=== PATIENT | male | born 1945 | race Caucasian/White ===

== ENCOUNTER → 2019-05-24 | Outpatient (CLI) | payer MEDICARE, OTHER | LOC: CARD 09:33 | PROVIDERS: ATTEND Internal Medicine Cardiovascular Disease | DX: I51.7 Cardiomegaly (principal); I25.10 Atherosclerotic heart disease of native coronary artery without angina pectoris; I11.0 Hypertensive heart disease with heart failure; I50.9 Heart failure, unspecified; E11.9 Type 2 diabetes mellitus without complications | CPT/HCPCS: 93306 ==

== ENCOUNTER → 2020-08-21 | Outpatient (CLI) | payer MEDICARE, OTHER ==
[~2020-08-21] VITALS: Ht 185 cm; Wt 122.0 kg
[~2020-08-21] MED LIST: CATHETER FLUSH 10 ML SYR IV PRN; REGADENOSON 0.4 MG/5 ML SYR (LEXISCAN) IV ONE
[2020-08-21 09:42] VITALS: BP 151/90
--- NOTE | 2020-08-21 11:22 | Cardiology Stress Test Report ---
Stress Test Report Date of Procedure/Referring: Date of Procedure: Aug 21, 2020 PCP Pipe Galindo MD Admitting Physician No,Local Physician Indications: CP Baseline Heart Rate: 89 Baseline Blood Pressure: Blood Pressure Systolic: 151 Blood Pressure Diastolic: 90 Baseline Vitals Vital Signs Date Time Temp Pulse Resp B/P (MAP) Pulse Ox O2 Delivery O2 Flow Rate FiO2 08/21/20 09:42 89 151/90 (110) 99 Baseline EKG: Baseline EKG: Normal sinus rhythm Summary After explaining the procedure to the patient, he signed a consent and then brought to the stress nuclear laboratory. Patient received 0.4 mg Lexiscan for stress test, ECG, heart rate and blood pressure were monitored continuously. Resting and stress dose of radio tracer were injected, imaging was acquired and reviewed in short axis, horizontal long axis and vertical long axis views. TID: 1.12 SSS: 6 SDS: 3 EF: 51 1. Patient tolerated Lexiscan well 2. Diaphragmatic attenuation with mild decreased uptake at the mid to apical inferolateral and anterolateral wall with mild reversibility, could be secondary to diaphragmatic attenuation 3. Normal left ventricular size, EF 51% PIPE GALINDO MD Aug 21, 2020 11:22
== END ==
LOC: CARD 07:58
PROVIDERS: ATTEND Internal Medicine Cardiovascular Disease
DX: R07.9 Chest pain, unspecified (principal)
CPT/HCPCS: 78452; 93017; A9502

== ENCOUNTER 2021-01-24 10:00 | Day surgery (SDC) | payer MEDICARE, OTHER ==
[~2021-01-24] VITALS: Ht 185 cm; Wt 126.0 kg
--- OUTSIDE RECORDS SUMMARY | 2021-01-24 07:48 | XMS REPORT | Continuity of Care Document ---
Author Author [facility] Organization [facility] Address [address] [place] [address] Phone Support Name Relationship Address Phone Mirza Mixon [employer] [address] [place] [address] Levy Rojas [employer]S [address] [place] [address] Allergies, Adverse Reactions, Alerts Allergen Type Severity Reaction Last Updated Verified Status NO KNOWN ALLERGIES Allergy Unknown na October 10, 2020 9:35am No Active Medications Medication Status Dose Units Route Directions Qty Days Start Date End Date Instructions Metformin Discontinued 1 000 MG PO TWICE A DAY 60 June 14, 2020 10:26am August 28, 2020 2:05pm Simvastatin Discontinued 40 MG PO EVERY EVENING June 14, 2020 11:01am October 25, 2020 1:05pm Lisinopril Active 20 MG PO DAILY August 28, 2020 8:58am Metformin Discontinued 1 000 MG PO TWICE A DAY 60 August 28, 2020 2:05pm January 09, 2021 10:12am Simvastatin Active 40 MG PO EVERY EVENING October 25, 2020 1:05pm Metformin Active 1000 MG PO TWICE A DAY 180 January 09, 2021 10:11am flu vacc [id number] [id number])-PF 240 mcg/0 .7 mL intramuscular syringe Discontinued 0.7 ML IM ONCE 0.7 February 04, 2020 9:05am Septembe r 2019 9:37am Metoprolol Succinate (Toprol Xl) 25 mg t ablet extended release 24 hr Active 25 MG PO DAILY May 15, 2020 10:25am Amlodipine Active 10 MG PO DAILY July 03, 2020 10:45am Glipizide Active 5 MG PO .am October 10, 2020 10:09am take 1 tablet in the morning Lisinopril Discontinued 20 MG PO DAILY July 26, 2018 3:58pm August 28, 2020 8:59am Amlodipine Discontinued 5 MG PO DAILY July 26, 2018 3:58pm May 15, 2020 10:26am Aspirin (Adult Low Dose Aspirin) 81 mg T ablet,Delayed Release (Dr/Ec) Active 81 MG PO DAILY July 26, 2018 3:58pm Simvastatin Discontinued 40 MG PO EVERY EVENING July 26, 2018 3:58pm June 14, 2020 11:02am Metformin Discontinued 1 000 MG PO TWICE A DAY July 26, 2018 3:58pm June 14, 2020 10:27am Ibuprofen Discontinued 8 00 MG PO Q8H July 26, 2018 4:40pm October 06, 2018 12:03pm Hydrocodone-Acetaminophen ([place]) 7.5-325 mg tablet Discontinued 1 TAB PO EVERY 4-6 HOURS July 26, 2018 4:40pm October 06 12:03pm Problems Active Problems Medical Problem Onset Date Status Diabetes Active Coronary artery disease Active Hyperlipidemia Active Left knee pain Active Localized cancer of nasal cavity Active Hypertension Active Inactive/Resolved Problems Medical Problem Onset Date Status Closed rib fracture Re solved Epistaxis Resolved Procedures No procedure information available. Relevant Diagnostic Tests and/or Laboratory Data Laboratory Results Test Date/Time Result Interpretation Reference Range Result Comment Performing Site White Blood Count January 12 9:01am 10.2 K/uL 4.8-10.8 [facility], [address] [facility] [address] Red Blood Count January 12, 2021 9:01am 5.46 M/uL 4.70-6.10 [facility], [address] [facility] [address] Hemoglobin January 12, 2021 9:01am 16.2 gm/dL 14.0-18.0 [facility], [address] [facility] [address] Hematocrit January 12, 2021 9:01am 47.9 % 42.0-52.0 [facility], [address] [facility] [address] Mean Corpuscular Volume January 9:01am 87.7 fL 80.0-96.1 [facility], [address] [facility] [address] Mean Corpuscular Hemoglobin Septembe r 3rd, 2021 9:01am 29.7 pg 27.0-31.0 [facility], [address] [place] [address] Mean Corpuscular Hemoglobin Concent January 12, 2021 9:01am 33.8 g/dL 30.0-37.0 [facility], [address] [place] [address] Red Cell [facility] 9:01am 14.9 % 11.5-14.5 [facility], [address] [place] [address] Platelet Count January 12, 2021 9:01am 383 K/uL 130-400 [facility], [address] [facility] [address] Neutrophils (%) (Auto) January 9:01am 66.7 % 42.2-75.2 [facility], [address] [facility] [address] Lymphocytes (%) (Auto) January 9:01am 19.9 % 20.5-51.1 [facility], [address] [facility] [address] Monocytes (%) (Auto) January 12, 2021 9:01am 8.4 % 0.0-10.0 [facility], [address] [facility] [address] Eosinophils (%) (Auto) January 9:01am 3.6 % 0.0-3.0 [facility], [address] [facility] [address] Basophils (%) (Auto) January 12, 2021 9:01am 1.1 % 0.0-1.0 [facility], [address] [facility] [address] Neutrophils # (Auto) January 12, 2021 9:01am 6.83 K/uL 2.0-6.9 [facility], [address] [facility] [address] Lymphocytes # (Auto) January 12, 2021 9:01am 2.04 K/uL 1.2-3.4 [facility], [address] [facility] [address] Monocytes # (Auto) January 12 9:01am 0.86 K/uL 0.1-0.6 [facility], [address] [facility] [address] Eosinophils # (Auto) January 12, 2021 9:01am 0.37 K/uL 0.0-0.7 [facility], [address] [facility] [address] Basophils # (Auto) January 12 9:01am 0.11 K/uL 0.0-0.20 [facility], [address] [facility] [address] Immature Granulocyte % (Auto) Janem caden 2020 9:01am 0.3 % [facility], [address] [facility] [address] Immature Granulocyte # (Auto) Janem caden 2020 9:01am 0.03 K/uL [facility], [address] [facility] [address] Sodium Level January 12, 2021 9:01am 142 mEq/L 136-145 [facility], [address] [facility] [address] Potassium Level January 12, 2021 9:01am 3.7 mEq/L 3.5-5.0 [facility], [address] [facility] [address] Chloride Level January 12, 2021 9:01am 105 mEq/L 98-107 [facility], [address] [facility] [address] Carbon Dioxide Level January 12, 2021 9:01am 24.8 mEq/L 21-32 [facility], [address] [facility] [address] Random Glucose January 12, 2021 9:01am 99 mg/dL 70-110 [facility], [address] [facility] [address] Blood Urea Nitrogen January 12 9:01am 10 mg/dL 7-18 [facility], [address] [facility] [address] Creatinine January 12, 2021 9:01am 0.9 mg/dL 0.7-1.3 [facility], [address] [facility] [address] Glomerular Filtration Rate Calc Sept ember 2020 9:01am 82.3 mL/min [facility], [address] [place] [address] Calcium Level January 12, 2021 9:01am 9.2 mg/dL 8.8-10.5 [facility], [address] [facility] [address] Total Bilirubin January 12, 2021 9:01am 0.41 mg/dL 0.00-1.00 [facility], [address] [facility] [address] Direct Bilirubin January 12, 2021 9:01a m 0.07 mg/dL 0.00-0.30 [facility], [address] [facility] [address] Indirect Bilirubin January 12 9:01am 0.34 mg/dL 0-0.70 [facility], [address] [facility] [address] Aspartate Amino Transf (AST/SGOT) Se pt2020 9:01am 17 U/L 15-37 [facility], [address] [place] [address] Alanine Aminotransferase (ALT/SGPT) January 12, 2021 9:01am 22 U/L 12-78 [facility], [address] [place] [address] Total Protein January 12, 2021 9:01am 7.4 gm/dL 6.4-8.2 [facility], [address] [facility] [address] Albumin January 12, 2021 9:01am 3.1 gm/dL 3.4-5.0 [facility], [address] [facility] [address] Triglycerides Level January 12 021 9:01am 99 mg/dL 30-200 [facility], [address] [facility] [address] Cholesterol Level January 12 9:01am 238 mg/dL 120-200 [facility], [address] [facility] [address] HDL Cholesterol January 12, 2021 9:01am 49 mg/dL 35-60 [facility], [address] [facility] [address] LDL Cholesterol, Calculated 2020 9:01am 169 mg/dL 0-130 [facility], [address] [place] [address] Alkaline Phosphatase January 12, 2021 9:01am 59 U/L 50-136 [facility], [address] [facility] [address] Thyroid Stimulating Hormone (Reflex January 12, 2021 9:01am 1.74 uIU/ml 0.36-3.74 TSH is within normal limits - Free T4 re flex testing will not be performed. [facility], [address] [facility] [address] Hemoglobin A1c January 12, 2021 9:01am 5.7 % 4.8-6.0 [facility], [address] [place] [address] Health Concerns Health Concerns may be documented in an alternate section. Advance Directives Advance Directive Response Recorded Date/Time Does the patient have an Advance Directive on File? No January 03, 2020 3:10pm Do you have a Medical Power of Cycling Instructor? N o January 03, 2020 3:10pm Do you have a Health Care Proxy? No January 03, 2020 3:10pm Do you have a Living Will? No January 03, 2020 3:10pm Chief Complaint and Reason for Visit Chief Complaint LABS MISC Encounters Encounter Location(s) Ar rival/Admit Date Discharge/Depart Date Provider(s) Departed Physician/Provider Office Visit [facility] January 12, 2021 8:48am January 12, 2021 9:11am Levy Rojas MD Departed Referred [facility] January 12, 2021 8:59am January 12, 2021 9:00am Levy Rojas MD Assessments No Assessments Information Available Functional Status No Functional Status information available Goals Goals may be documented in an alternate section. Immunizations No Immunization Information Available Mental Status No Mental Status Information Available Medical Equipment No Medical Equipment Information available Insurance Providers Guarantor [employer] Address [address] [phone] Contact Info. Home Phone: Payer Policy Id Coverage Id Subscriber's Name Subscriber Id Effective Date Expiration Date Medicare [id number] [facility] [id number] [employer] [id number] [employer] [id number] [employer] [id number] Other [id number] Self Pay Self N/A Social History Smoking Status Status Date of Observation Unknown if ever smoked June 9:23am Observation Status Observation Response Marshal e of Response Smoking Status Never Smoked July 03, 2020 10:23am Exposure to Secondhand Smoke No January 03, 2020 3:10pm Alcohol Use None January 03, 2020 3:10pm Illicit Drug Use No 2019 3:10pm Assigned Sex Male Vital Signs No vital signs result information available.
--- OUTSIDE RECORDS SUMMARY | 2021-01-24 07:48 | XMS REPORT | Clinical Summary ---
Author Author [facility] Organization [facility] Address Unknown Phone Unavailable Care Team Providers Care Impression Printer Name Role Phone Darrick Mercado PCP Marcus Robison MD 5 [phone] Source Comments Some departments are not documenting in the electronic medical record. If you d o not see the information that you expected, contact Release of Information in [facility] [place] Information Management department at [phone] for further assistan ce in locating additional records.[facility] Allergies No Known Active Allergies Medications End Date Status Medication Sig Dispensed Refills Start Date Active lisinopril (PRINIVIL; Take 20 mg by 99 08/13/19 1 ZESTRIL) 20 mg tablet mouth at 9 bedtime daily. Active amLODIPine (NORVASC) 5 mg Take 5 mg by 0 tablet mouth every 9 morning. Active metFORMIN (GLUCOPHAGE) Take 1,000 mg 0 1,000 mg tablet by mouth twice daily with meals. Active simvastatin (ZOCOR) 40 mg Take 40 mg by 0 tablet mouth every morning. Active sinus rinse pack kit Apply one 1 kit 0 11/03 packet into 9 nose as directed twice daily. Additional Information Patient taking differently: 1 packet Nasal FOUR TIMES DAILY, Reported on 04/16/2019 Active aspirin 81 mg chewable Chew one 90 tablet 3 tablet tablet by 9 mouth daily. Take with food. Additional Information Patient taking differently: 81 mg Oral AT BEDTIME DAILY, Take with food., Reported on 04/16/2019 Active LORazepam (ATIVAN) 1 mg Take one 40 tablet 0 tabletIndications: tablet by 9 anxiety, take 1 hour mouth every 4 prior radiation hours as needed for Nausea, Vomiting or Other.... Indications: anxious, take 1 hour prior radiation Active acetaminophen (TYLENOL) Take two 30 tablet 1 325 mg tablet tablets by 0 mouth every 4 hours as needed for Pain. Active traMADol (ULTRAM) 50 mg Take one 10 tablet 0 tablet tablet by 0 mouth every 6 hours as needed for Pain. Active sodium chloride (SALINE Apply one 30 mL 1 NASAL) 0.65 % nasal spray spray to two 0 sprays to each nostril as directed as Needed. Active metoprolol XL (TOPROL XL) Take 25 mg by 0 25 mg extended release mouth daily. 1 tablet Active LORazepam (ATIVAN) 1 mg Take one 2 tablet 0 tablet tablet 1 hour 1 prior to MRI. Take additional tablet as needed if still anxious prior to scan. 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 Surgical History Surgery Date Site/Laterality Comments KNEE REPLACEMENT 05/12/2014 - Left 05/11/2015 HX TONSIL AND 05/12/1947 - ADENOIDECTOMY 05/11/1948 APPENDECTOMY 05/12/1964 - 05/11/1965 WISDOM TEETH EXTRACTION 05/12/1962 - 05/11/1963 NASAL HEMORRHAGE CONTROL 05/12/2018 - x 2 05/11/2019 CRANIOTOMY 11/02/2018 Nose/Left CRANIOFACIAL CR ANIOTOMY ANTERIOR FOSSA WITH LATERAL RHINOTOMY/ ETHMOIDECTOMY/ SPHEN OIDECTOMY WITHOUT MAXILLECTOMY/ ORBITAL EXENTERAT ION - EXTRADURAL performed by Rafael Rodas MD at [facility] OR/Periop CRANIAL LESION RESECTION 11/02/2018 Nose/Left RESEC TION/ EXCISION NEOPLASTIC/ VASCULAR/ INFECTIOUS LESION BASE ANTERIOR CRANIAL FOSSA - EXTRADURAL performed by Rafael Rodas MD at [facility] OR/Periop HX BACK SURGERY 05/12/2012 - x 2 05/11/2013 HX CORONARY STENT 05/12/2004 - PLACEMENT 05/11/2005 CORONARY STENT PLACEMENT 05/12/2002 - 05/11/2003 TURBINATE RESECTION 05/17/2019 Bilateral SUBMUCOUS RESECTION TURBINATE PARTIAL/ COMPLETE performed by Rafael Rodas MD at [facility] OR/Periop SINUS ENDOSCOPY 05/17/2019 Bilateral ENDOSCOPY NASA L/ SINUS WITH BIOPSY/DEBRIDEMENT performed by Rafael Rodas MD at [facility] OR/Periop Medical History Medical History Date Comments DM (diabetes mellitus) (HCC) Heart disease High cholesterol Coronary artery disease Arthritis Hypertension Myocardial infarction (HCC) 2002 TIA (transient ischemic attack) CVA (cerebral vascular accident) (HCC) 2009 Rt eye Family History Relation Name Status Comments Father Mother Social History Date Tobacco Use Types Packs/Day Years Used Quit: 05/12/2002 Former Smoker Cigarettes, 1 40 Cigars Smokeless Tobacco: Never Used Comments Alcohol Use Standard Drinks/Week 2-3 per week Yes 1 (1 standard drink = 0.6 o z pure alcohol) Alcohol Habits Answer Date Recorded How often do you have a drink containing alcohol? Never 10/13/2018 How many drinks containing alcohol do you have on No t asked a typical day when you are drinking? How often do you have six or more drinks on one Not asked occasion? Comment: 2-3 per week 10/13/2018 Sex Assigned at Date Recorded Male 09/10/2019 9:31 AM CDT Last Filed Vital Signs Reading Time Taken Comments Vital Sign 158/91 08/15/2020 10:48 AM CDT Blood Pressure 106 08/15/2020 10:48 AM CDT Pulse 35.9 C (96.6 F) 08/15/2020 10:48 AM CDT Temperature - - Respiratory Rate 99% 09/10/2019 11:27 AM CDT Oxygen Saturation - - Inhaled Oxygen Concentration 124.7 kg (275 lb) 08/15/2020 10:48 AM CDT Weight 190.5 cm (6' 3") 08/15/2020 10:48 AM CDT Height 34.37 08/15/2020 10:48 AM CDT Body Mass Index Plan of Treatment Health Maintenance Due Date Last Done Comments MEDICARE ANNUAL WELLNESS 1945 VISIT DTAP/TDAP VACCINES (1 - 1963 Tdap) HEPATITIS C SCREENING 1963 PHYSICAL (COMPREHENSIVE) 1963 EXAM COLORECTAL CANCER 1995 SCREENING SHINGLES RECOMBINANT 1995 VACCINE (1 of 2) ABDOMINAL AORTIC ANEURYSM 2010 SCREENING PNEUMONIA (PPSV23) 2010 VACCINE (1 of 1 - PPSV23) INFLUENZA VACCINE 02/09/2021 Implants Device Identifier Shelf Expiration Date Model / Serial / L ot Implanted Type Area Manufactur er Left Knee Knee Lower Back Screw Screw Results Not on filefrom Last 3 Months Insurance Type Payer Benefit Subscriber ID Effective Phone Address Plan / Dates Group Medicare MEDICARE MEDICARE [id number] 2010- PART A AND Present B PPO [employer] [place] [employer] [id number] 2018- INS[place]ANCE [place] Advance Directives Patient 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 necessary based on Dx
--- OUTSIDE RECORDS SUMMARY | 2021-01-24 07:48 | XMS REPORT | Continuity of Care Document ---
Author Author [facility] Organization [facility] Address [address] [place] [address] Phone Support Name Relationship Address Phone Mirza Mixon PRS [address] [place] [address] Levy Rojas PRS [address] [place] [address] Allergies, Adverse Reactions, Alerts Allergen Type Severity [...] 180 January 09, 2021 10:11am flu vacc [id number](65yr up)-PF 240 mcg/0 .7 mL intramuscular syringe [...] 2018 4:40pm October 06, 2018 12:03pm Hydrocodone-Acetaminophen ([place]) 7.5-325 mg tablet Discontinued 1 TAB PO [...] Count January 12 9:01am 10.2 K/uL 4.8-10.8 [facility], [address] [facility] [address] Red Blood Count January 12, 2021 9:01am 5.46 M/uL 4.70-6.10 [facility], [address] [facility] [address] Hemoglobin January 12, 2021 9:01am 16.2 gm/dL 14.0-18.0 [facility], [address] [facility] [address] Hematocrit January 12, 2021 9:01am 47.9 % 42.0-52.0 [facility], [address] [facility] [address] Mean Corpuscular Volume January 9:01am 87.7 fL 80.0-96.1 [facility], [address] [facility] [address] Mean Corpuscular Hemoglobin Septembe r 3rd, 2021 9:01am 29.7 pg 27.0-31.0 [facility], [address] [place] [address] Mean Corpuscular Hemoglobin Concent January 12, 2021 9:01am 33.8 g/dL 30.0-37.0 [facility], [address] [place] [address] Red Cell Distribution Width [facility] 9:01am 14.9 % 11.5-14.5 [facility], [address] [place] [address] Platelet Count January 12, 2021 9:01am 383 K/uL 130-400 [facility], [address] [facility] [address] Neutrophils (%) (Auto) January 9:01am 66.7 % 42.2-75.2 [facility], [address] [facility] [address] Lymphocytes (%) (Auto) January 9:01am 19.9 % 20.5-51.1 [facility], [address] [facility] [address] Monocytes (%) (Auto) January 12, 2021 9:01am 8.4 % 0.0-10.0 [facility], [address] [facility] [address] Eosinophils (%) (Auto) January 9:01am 3.6 % 0.0-3.0 [facility], [address] [facility] [address] Basophils (%) (Auto) January 12, 2021 9:01am 1.1 % 0.0-1.0 [facility], [address] [facility] [address] Neutrophils # (Auto) January 12, 2021 9:01am 6.83 K/uL 2.0-6.9 [facility], [address] [facility] [address] Lymphocytes # (Auto) January 12, 2021 9:01am 2.04 K/uL 1.2-3.4 [facility], [address] [facility] [address] Monocytes # (Auto) January 12 9:01am 0.86 K/uL 0.1-0.6 [facility], [address] [facility] et [facility] [address] Eosinophils # (Auto) January 12, 2021 9:01am 0.37 K/uL 0.0-0.7 [facility], [address] [facility] [address] Basophils # (Auto) January 12 9:01am 0.11 K/uL 0.0-0.20 [facility], [address] [facility] [address] Immature Granulocyte % (Auto) Janem caden 2020 9:01am 0.3 % [facility], [address] [facility] [address] Immature Granulocyte # (Auto) Janem caden 2020 9:01am 0.03 K/uL [facility], [address] [facility] [address] Sodium Level January 12, 2021 9:01am 142 mEq/L 136-145 [facility], [address] [facility] [address] Potassium Level January 12, 2021 9:01am 3.7 mEq/L 3.5-5.0 [facility], [address] [facility] [address] Chloride Level January 12, 2021 9:01am 105 mEq/L 98-107 [facility], [address] [facility] [address] Carbon Dioxide Level January 12, 2021 9:01am 24.8 mEq/L 21-32 [facility], [address] [facility] [address] Random Glucose January 12, 2021 9:01am 99 mg/dL 70-110 [facility], [address] [facility] [address] Blood Urea Nitrogen January 12 9:01am 10 mg/dL 7-18 [facility], [address] [facility] [address] Creatinine January 12, 2021 9:01am 0.9 mg/dL 0.7-1.3 [facility], [address] [facility] [address] Glomerular Filtration Rate Calc Sept ember 2020 9:01am 82.3 mL/min [facility], [address] [place] [address] Calcium Level January 12, 2021 9:01am 9.2 mg/dL 8.8-10.5 [facility], [address] [facility] [address] Total Bilirubin January 12, 2021 9:01am 0.41 mg/dL 0.00-1.00 [facility], [address] [facility] [address] Direct Bilirubin January 12, 2021 9:01a m 0.07 mg/dL 0.00-0.30 [facility], [address] [facility] [address] Indirect Bilirubin January 12 9:01am 0.34 mg/dL 0-0.70 [facility], [address] [facility] [address] Aspartate Amino Transf (AST/SGOT) Se pt2020 9:01am 17 U/L 15-37 [facility], [address] [place] [address] Alanine Aminotransferase (ALT/SGPT) January 12, 2021 9:01am 22 U/L 12-78 [facility], [address] [place] [address] Total Protein January 12, 2021 9:01am 7.4 gm/dL 6.4-8.2 [facility], [address] [facility] [address] Albumin January 12, 2021 9:01am 3.1 gm/dL 3.4-5.0 [facility], [address] [facility] [address] Triglycerides Level January 12 021 9:01am 99 mg/dL 30-200 [facility], [address] [facility] [address] Cholesterol Level January 12 9:01am 238 mg/dL 120-200 [facility], [address] [facility] [address] HDL Cholesterol January 12, 2021 9:01am 49 mg/dL 35-60 [facility], [address] [facility] [address] LDL Cholesterol, Calculated 2020 9:01am 169 mg/dL 0-130 [facility], [address] [place] [address] Alkaline Phosphatase January 12, 2021 9:01am 59 U/L 50-136 [facility], [address] [facility] [address] Thyroid Stimulating Hormone (Reflex January 12, 2021 9:01am 1.74 uIU/ml 0.36-3.74 TSH is within normal limits - Free T4 re flex testing will not be performed. [facility], [address] [facility] [address] Hemoglobin A1c January 12, 2021 9:01am 5.7 % 4.8-6.0 [facility], [address] [place] [address] Health Concerns Health Concerns may be documented in an alternate section. Advance Directives Advance Directive Response Recorded Date/Time Does the patient have an Advance Directive on File? No January 03, 2020 3:10pm Do you have a Medical Power of Cashier Parking Lot? N o January 03, 2020 3:10pm Do you have a Health Care Proxy? No January 03, 2020 3:10pm Do you have a Living Will? No January 03, 2020 3:10pm Chief Complaint and Reason for Visit Chief Complaint LABS MISC Encounters Encounter Location(s) Ar rival/Admit Date Discharge/Depart Date Provider(s) Departed Physician/Provider Office Visit [facility] January 12, 2021 8:48am January 12, 2021 9:11am Levy Rojas MD Departed Referred [facility] January 12, 2021 8:59am January 12, 2021 9:00am Levy Rojas MD Assessments No Assessments Information Available Functional Status No Functional Status information available Goals Goals may be documented in an alternate section. Immunizations No Immunization Information Available Mental Status No Mental Status Information Available Medical Equipment No Medical Equipment Information available Insurance Providers Guarantor Shiv Blue Address [address] [phone] Contact Info. Home Phone: Payer Policy Id Coverage Id Subscriber's Name Subscriber Id Effective Date Expiration Date Medicare [id number] [facility] [id number] Shiv Blue [id number] [employer] [id number] Shiv Blue [id number] Other [id number] Self Pay Self N/A Social History Smoking [...]
--- OUTSIDE RECORDS SUMMARY | 2021-01-24 07:49 | XMS REPORT | Continuity of Care Document ---
Author Author [facility] Organization [facility] Address [address] [place] [address] Phone Support Name Relationship Address Phone Mirza Mixon PRS [address] [place] [address] Levy Rojas PRS [address] [place] [address] Allergies, Adverse Reactions, Alerts Allergen Type Severity [...] 180 January 09, 2021 10:11am flu vacc [id number](65yr up)-PF 240 mcg/0 .7 mL intramuscular syringe [...] 2018 4:40pm October 06, 2018 12:03pm Hydrocodone-Acetaminophen ([place]) 7.5-325 mg tablet Discontinued 1 TAB PO [...] available. Relevant Diagnostic Tests and/or Laboratory Data No known relevant diagnostic tests and/or laboratory data. Health Concerns Health Concerns may be documented in an alternate section. Advance Directives Advance Directive Response Recorded Date/Time Does the patient have an Advance Directive on File? No January 03, 2020 3:10pm Do you have a Medical Power of Direct Support Specialist? N o January 03, 2020 3:10pm Do you have a Health Care Proxy? No January 03, 2020 3:10pm Do you have a Living Will? No January 03, 2020 3:10pm Chief Complaint and Reason for Visit Chief Complaint LABS [facility] Encounters Encounter Location(s) Ar rival/Admit Date Discharge/Depart Date Provider(s) Departed Physician/Provider Office Visit [facility] January 12, 2021 8:48am January 12, 2021 9:11am Levy Rojas MD Registered Referred [facility] [place] [facility] January 12, 2021 8:59am Levy Rojas MD Assessments No Assessments Information Available Functional Status No Functional Status information available Goals Goals may be documented in an alternate section. Immunizations No Immunization Information Available Mental Status No Mental Status Information Available Medical Equipment No Medical Equipment Information available Insurance Providers Guarantor Shiv Blue Address [address] [facility] [address] Contact Info. Home Phone: Payer Policy Id Coverage Id Subscriber's Name Subscriber Id Effective Date Expiration Date Medicare [id number] Shiv lBue [id number] [id number] Shiv Blue [id number] Other [id number] Self Pay Self N/A Social History Smoking [...]
--- OUTSIDE RECORDS SUMMARY | 2021-01-24 07:49 | XMS REPORT | Continuity of Care Document ---
Author Author [facility] Organization [facility] Address [address] [place] [address] Phone Support Name Relationship Address Phone Mirza Mixon PRS [address] [place] [address] Levy Rojas PRS [address] [place] [address] Allergies, Adverse Reactions, Alerts Allergen Type Severity [...] 180 January 09, 2021 10:11am flu vacc [id number](65yr up)-PF 240 mcg/0 .7 mL intramuscular syringe [...] 2018 4:40pm October 06, 2018 12:03pm Hydrocodone-Acetaminophen ([place]) 7.5-325 mg tablet Discontinued 1 TAB PO [...] Do you have a Medical Power of Sort Supervisor? N o January 03, 2020 3:10pm Do you have a Health Care Proxy? No January 03, 2020 3:10pm Do you have a Living Will? No January 03, 2020 3:10pm Chief Complaint and Reason for Visit Chief Complaint LABS [facility] Encounters Encounter Location(s) Ar rival/Admit Date Discharge/Depart Date Provider(s) Departed Physician/Provider Office Visit [facility] January 12, 2021 8:48am January 12, 2021 9:11am Levy Rojas MD Registered Referred [facility] [place] [facility] January 12, 2021 8:59am Levy Rojas MD Assessments No Assessments Information Available Functional Status No Functional Status information available Goals Goals may be documented in an alternate section. Immunizations No Immunization Information Available Mental Status No Mental Status Information Available Medical Equipment No Medical Equipment Information available Insurance Providers Guarantor Shiv Blue Address [address] [facility] [address] Contact Info. Home Phone: Payer Policy Id Coverage Id Subscriber's Name Subscriber Id Effective Date Expiration Date Medicare [id number] Shiv Blue [id number] [employer] PWA [id number] Shiv Blue [id number] Other [id number] Self Pay Self N/A Social History Smoking [...]
[2021-01-24 08:02] VITALS: BP 160/87
[2021-01-24 08:08] LABS: HEMATOCRIT 44 % (40-54); HEMOGLOBIN 14.5 g/dL (13.3-17.7); MEAN CORPUSCULAR HEMOGLOBIN 30 pg (25-34); MEAN CORPUSCULAR HGB CONC 33 g/dL (32-36); MEAN CORPUSCULAR VOLUME 89 fL (80-99); MEAN PLATELET VOLUME 10.5 fL (9.0-12.2); PLATELET COUNT 167 10^3/uL (130-400); WHITE BLOOD COUNT 6.4 10^3/uL (4.3-11.0)
--- NOTE | 2021-01-24 08:13 | Diagnostic Imaging Report ---
INDICATION: Coronary artery disease. COMPARISON: No previous study is available for comparison at this time. FINDINGS: Heart size and pulmonary vasculature are within normal limits, and the lungs are clear, bilaterally. IMPRESSION: Unremarkable chest. Dictated by: Dictated on workstation # [id number]
[2021-01-24 08:23] LABS: INR 0.9 (0.8-1.4); PROTHROMBIN TIME PATIENT 12.6 SEC (12.2-14.7)
[2021-01-24 08:31] LABS: ALBUMIN 4.2 GM/DL (3.2-4.5); BILIRUBIN,TOTAL 0.6 MG/DL (0.1-1.0); CALCIUM 9.2 MG/DL (8.5-10.1); CREATININE SERUM 0.88 MG/DL (0.60-1.30); POTASSIUM 4.2 MMOL/L (3.6-5.0); TOTAL PROTEIN 6.9 GM/DL (6.4-8.2)
--- NOTE | 2021-01-24 09:26 | Conscious Sedation/ASA ---
Conscious Sedation Pre-Proced Time 09:26 ASA Score 3 For ASA 3 and 4: Consider anesthesia and medical clearance. Also, for patients with a history of failed moderate sedation consider anesthesia. Airway Lungs Heart ASA score ASA 1: a normal healthy patient ASA 2: a patient with a mild systemic disease (mid diabetes, controlled hypertension, obesity x ASA 3: a patient with a severe systemic disease that limits activity (angina, COPD, prior Myocardial infarction) ASA 4: a patient with an incapacitating disease that is a constant threat to life (CHF, renal failure) ASA 5: a moribund patient not expected to survive 24 hrs. (ruptured aneurysm) ASA 6: a declared brain- patient whose organs are being harvested. For emergent operations, add the letter E after the classification Mallampati Classification Grade 3 Sedation Plan Analgesia, Amnesia, Plan communicated to team members, Discussed options with patient/fam, Discussed risks with patient/fam The patient is an appropriate candidate to undergo the planned procedure, sedation, and anesthesia. The patient immediately re-assessed prior to indication. PIPE FREED MD Jan 24, 2021 09:26
[~2021-01-24 10:00] MED LIST changes: +ACET325T38 PO; +ASPI-1238 PO; -CATHETER FLUSH 10 ML SYR IV PRN; +HEParin (CATH LAB) 2,000 ML IV ONE; +LIDOCAINE 1% INJ 20 ML 20 ML VIAL ONE; +LISI20TA26 PO; +METF-399 PO; +NS IV 1000 ML 1,000 ML IV SCH; +NS IV 1000 ML 1,000 ML ONE; -REGADENOSON 0.4 MG/5 ML SYR (LEXISCAN) IV ONE; +SIMV40TA25 PO
[2021-01-24] MEDS ORDERED: ASPIRIN 325 MG (5 GR) TABLET ONE (10:43)
[2021-01-24] MEDS ORDERED: CLOPIDOGREL 300 MG (PLAVIX) TABLET PO ONE (10:44)
[2021-01-24] MEDS ORDERED: NS IV 1000 ML 1,000 ML IV SCH (10:45)
--- NOTE | 2021-01-24 10:50 | Cardiac Cath Report ---
Cardiac Cath Report Physician (s)/[place] Upholsterer (s) Physician PIPE FREED MD Pre-Procedure Diagnosis Pre-Procedure Diagnosis: Coronary artery disease Post-Procedure Note Procedure Start Date: Jan 24, 2021 Name of Procedure: Left heart catheterization Stenting to the right coronary artery Findings/Procedure Note PROCEDURE NOTE: 75-year-old gentleman with history of hypertension, hyperlipidemia, had an abnormal stress test with inferior wall ischemia, scheduled for cardiac catheterization possible PTCA. After explaining the procedure to the patient, all pros and cons were explained, all questions were answered. The patient signed the consent and then he was placed on the cardiac catheterization laboratory. Groin was prepped SL fashion local anesthesia was used. Sheath placed in the right radial artery, [place] catheter was advanced to the left ventricular cavity, then it was pulled back to the ascending aorta, intubated the right and left coronary system and angiogram was done. Patient was noted to have severe stenosis in the proximal right coronary artery. Given additional 4000 units of heparin, FIR guide was advanced to the left ventricular cavity, pressure was measured, pullback LV to aorta was done then intubated the right coronary artery, I advanced a BMW wire with difficulties, did not receive enough support to advance a stent I advanced 3 x 15 mm stent and anchored it in the proximal right coronary artery positioned the guide in a better position and advanced the wire distally. Balloon angioplasty to the proximal lesion was done then I remove the balloon and try to advance a stent without success subsequently I decided to advance a geovanna wire, I advanced a second BMW wire and parked it distally which made advancement of the stent somewhat easier I position the stent carefully then deployed the stent at 16atm to 3.6 mm using Neisha 3.5 x 15 mm with excellent results. The wire were removed no complication noted. At the end of the procedure the sheath was removed. Vascular band deployed FINDINGS: Hemodynamics LV 135/20, end-diastolic pressure of 20 Aorta 132/87 mean of 109 ANATOMY: Left Main is is free of obstructive disease Left Anterior Descending is moderate in size with mild disease in the mid LAD, nonobstructive disease Left Circumflex is moderate in size with mild disease nonobstructive disease Right Coronary Artery is dominant artery with severe stenosis proximally, complex intervention with deployment of Neisha drug-eluting stent 3.5 x 15 mm expanded to 3.66 mm with excellent results LV Gram was not done, pressure was measured CONCLUSION: 1. Severe stenosis of the proximal right coronary artery, successful stenting using Neisha 3.5 x 50 mm expanded to 3.66 mm with excellent results 2. Mild disease in the mid LAD nonobstructive disease otherwise nonobstructive disease 3. Mildly elevated left ventricular end-diastolic pressure DISCUSSION AND RECOMMENDATION: Patient was started on aspirin and Plavix, maximize medical therapy and monitor Anesthesia Type: Conscious Sedation Estimated blood loss (mL): 15 ml Contrast Amount: 94 ml Total Radiation Dose: 1659 mGy Post-Procedure Diagnosis Post-operative diagnosis: Chest pain Coronary artery disease Hypertension Hyperlipidemia PIPE FREED MD Jan 24, 2021 10:50
[2021-01-24] MEDS ORDERED: CLOP75TA28 PO (10:59)
--- NOTE | 2021-01-24 10:59 | Discharge Inst-Post CATH ---
Discharge Inst-CATH/EP Problems Reviewed?: Yes Post Cardiac Cath/EP D/C Inst Follow Up/Plan Appointment with Dr Galindo in 2-4 weeks <b>CARDIAC CATH/EP PROCEDURE DISCHARGE INSTRUCTIONS</b> ACTIVITY * Go Home directly and rest. * Limit activity of the leg (or wrist if it was used) for 7 days including aerobics, swimming, jogging, bicycling, etc. * Restrict stair-climbing for 7 days if possible, if not, climb up with your non-cath leg, then bring together on the same step. * Avoid lifting, pushing, pulling or excessive movement of the affected extremity for 7 days. * Customary sexual activity may be resumed after 2 days-use caution not to use a position that strains or causes pain to the affected extremity. * No driving for 24 hours. * NO SMOKING. * Avoid straining for bowel movements for 7 days. * Gentle walking on level ground is allowed. * Returning to work will depend on the type of procedure and the results. Your doctor will discuss this with you. CALL YOUR DOCTOR FOR ANY OF THE FOLLOWING: *If bleeding from the puncture site occurs- Apply gentle pressure to site with clean cloth and call your doctor or EMS. * If a knot or lump forms under the skin, increases in size, or causes pain. * If bruising appears to be worsening or moving further down your leg instead of disappearing. * Temperature above 101 F. CARE OF YOUR GROIN INCISION; * Bruising or purple discoloration of the skin near the puncture site is common. * You may shower only, no bathtub bathing for 5 days. Be careful to avoid slipping as your leg may feel stiff. * If a closure device was used on your femoral artery, please see the attached guide regarding care of the device and your leg. * Leave dressing on FOR 24 hours. CARE OF YOUR WRIST INCISION; * Bruising or purple discoloration of the skin near the puncture site is common. * You may shower. * DO NOT submerge wrist. * Leave dressing on FOR 24 hours. PIPE GALINDO MD Jan 24, 2021 10:59
[2021-01-24 11:15] VITALS: BP 141/101
[2021-01-24 11:30] VITALS: BP 145/81
[2021-01-24 15:27] VITALS: BP 105/87
[2021-01-24 16:57] VITALS: BP 105/87
[2021-01-24] MEDS ORDERED: SIMvastatin 40 MG (ZOCOR) TAB PO SCH (21:00)
[2021-01-25] MEDS ORDERED: lisINopril 20 MG (PRINIVIL) TABLET PO SCH (09:00)
[2021-01-25] MEDS ORDERED: ASPIRIN E.C. 81 MG (ECOTRIN) TAB PO SCH (09:00)
[2021-01-25] MEDS ORDERED: CLOPIDOGREL 75 MG (PLAVIX) TABLET PO SCH (09:00)
== END 2021-01-24 16:58 ==
LOC: CATH 10:00 → CSD 11:30 → CATH 16:58
PROVIDERS: ATTEND Internal Medicine Cardiovascular Disease
DX: I25.10 Atherosclerotic heart disease of native coronary artery without angina pectoris (principal); I25.9 Chronic ischemic heart disease, unspecified; E11.9 Type 2 diabetes mellitus without complications; I65.23 Occlusion and stenosis of bilateral carotid arteries; I11.0 Hypertensive heart disease with heart failure; I50.9 Heart failure, unspecified; E78.2 Mixed hyperlipidemia; Z85.89 Personal history of malignant neoplasm of other organs and systems; Z79.899 Other long term (current) drug therapy; Z79.82 Long term (current) use of aspirin; Z79.84 Long term (current) use of oral hypoglycemic drugs; Z87.891 Personal history of nicotine dependence; Z86.73 Personal history of transient ischemic attack (TIA), and cerebral infarction without residual deficits
CPT/HCPCS: 71045; 80053; 80061; 85027; 85610; 85730; 87081; 93458; C1725; C1769; C1874; C1887; C1894; C9600; 36415